=== PATIENT | female | born 1970 | race Hispanic/Latino ===

== ENCOUNTER 2018-03-06 19:27 | Emergency (ER) | payer MEDICAID, OTHER ==
[~2018-03-06] VITALS: Ht 154.9 cm; Wt 86.2 kg
[2018-03-06] MEDS ORDERED: TETRACAINE HCL 0.5% 4 ML OPHTH SOLN ONE (19:52)
[2018-03-06] MEDS ORDERED: FLUORESCEIN SODIUM 0.6 MG STRIP ONE (19:52)
[2018-03-06] MEDS ORDERED: TIMOLOL MALEATE 0.5% 5 ML BOTTLE ONE (21:14)
[2018-03-06] MEDS ORDERED: DORZOLAMIDE HCL 2% 10ML DROPS ONE (22:32)
[2018-03-06] MEDS ORDERED: HYDROCODONE/ACETAMINOPHEN 10/325 MG TAB ONE (22:35)
[2018-03-06] MEDS ORDERED: LATANOPROST 2.5 ML DROPS OP ONE (23:45)
[2018-03-07] MEDS ORDERED: TRAMADOL HCL 50 MG TABLET ONE (00:35)
== END 2018-03-07 00:40 | disposition home or self-care (01) ==
LOC: EDH 19:27
DX: E11.65 Type 2 diabetes mellitus with hyperglycemia (principal); H40.9 Unspecified glaucoma; Z87.891 Personal history of nicotine dependence
CPT/HCPCS: 82948

== ENCOUNTER 2021-01-06 17:27 | Emergency (ER) | payer OTHER, SELFPAY ==
[2021-01-06] MEDS ORDERED: NIFEDIPINE 10 MG CAP ONE (17:49)
[2021-01-06] MEDS ORDERED: ACETAMINOPHEN 325 MG TAB ONE (18:08)
[2021-01-06 18:22] LABS: EOSINOPHILS % (AUTO) 1.1 % (0.0-8.0); HEMATOCRIT 33.4 % (36-48); LYMPHOCYTES % (AUTO) 23.2 % (21.0-51.0); MEAN CORPUSCULAR HGB CONC 33.2 g/dL (32.0-36.0); MEAN CORPUSCULAR VOLUME 87.2 fL (79-99); MONOCYTES % (AUTO) 5.1 % (3.0-13.0); NEUTROPHILS % (AUTO) 69.2 % (40.0-77.0); PLATELET COUNT (AUTO) 305 K/uL (130-400); RED BLOOD CELL COUNT(AUTO) 3.83 MIL/uL (4.00-5.50); WHITE BLOOD COUNT (AUTO) 8.2 K/uL (4.8-10.8)
[2021-01-06 18:31] LABS: POTASSIUM 4.5 mmol/L (3.5-5.1)
[2021-01-06] MEDS ORDERED: DiphenhydrAMINE HCL 50 MG/ML VIAL ONE (20:46)
[2021-01-06] MEDS ORDERED: OXYCODONE/ACETAMIN 5/325MG TAB ONE (20:47)
[2021-01-06 20:48] LABS: APPEARANCE,URINE Clear (CLEAR); BILIRUBIN,URINE Negative (NEGATIVE); COLOR,URINE Yellow (YELLOW); GLUCOSE, URINE (UA) Negative (NEGATIVE); KETONES,URINE Negative (NEGATIVE); LEUKOCYTE ESTERASE ,URINE Small (NEGATIVE); NITRATE,URINE Negative (NEGATIVE); OCCULT BLOOD,URINE Negative (NEGATIVE); PROTEIN,URINE POS 1+ mg/dL (NEGATIVE); UROBILINOGEN,URINE 0.2 mg/dL (0.2-1.0)
[2021-01-06 20:54] LABS: BACTERIA,URINE Rare /HPF (None Seen); RBC,URINE 0-1 /HPF (0-1); SQUAMOUS EPITHELIAL CELL,UR Moderate /HPF (0-2)
== END 2021-01-06 21:21 | disposition home or self-care (01) ==
LOC: EDH 17:27
DX: R51.9 Headache, unspecified (principal); I10 Essential (primary) hypertension; E11.9 Type 2 diabetes mellitus without complications; E78.5 Hyperlipidemia, unspecified
CPT/HCPCS: 36415; 70450; 80048; 81001; 82550; 84484; 85025; 93005; 99285; J1200

== ENCOUNTER 2024-08-03 07:29 | Emergency (ER) | payer BC, OTHER ==
[~2024-08-03] VITALS: Ht 152.4 cm; Wt 84.8 kg
--- NOTE | 2024-08-03 07:42 | NUR ---
UNABLE TO OBTAIN BP IN TRIAGE ROOM AFTER 3 ATTEMPTS, PT IN ROOM 19 CURRENTLY TRYING TO RECORD BP, PT STATES SHE HAS NOT TAKEN BP MEDS TODAY
--- NOTE | 2024-08-03 08:36 | ERN ---
General Chief Complaint: Dizzy/Light Headed Stated Complaint: DIZZINESS Time Seen by MD: 07:52 History of Present Illness Initial Comments 54-year-old female who presents for vertigo type symptoms beginning at 4:00 a.m. on 08/03/2024. She reports that she was sleeping, she woke up she felt spinning sensation. She thought that her sugar was low, she checked it and it was 110. She drank some juice. She laid back down but the spinning persists. She reports that it is worse when she moves her head from side to side or stands up. If she sits still with the eyes closed the symptoms improve. She denies any recent congestion or fevers. She denies any focal neurologic deficits otherwise. Allergies: Coded Allergies: No Known Allergies (Verified Allergy, Unknown, 03/07/18) Past Medical History Past Medical History: Diabetes-Type II, High Cholesterol, Hypertension Past Surgical History: None ROS Dictation CONSTITUTIONAL: No chills, no fever, no weakness, no diaphoresis, no malaise. HEAD/FACE: No signs of trauma. EENT: No eye pain, no blurred vision, no tearing, no double vision, no ear pain, no ear discharge, no nose pain, no nasal congestion, no throat pain, no throat swelling, no mouth pain. RESPIRATORY: No cough, no orthopnea, no SOB, no stridor, no wheezing. CARDIOVASCULAR: No chest pain, no edema, no palpitations, no syncope. GASTROINTESTINAL/ABDOMINAL: No abdominal pain, no constipation, no diarrhea, no nausea, no vomiting. GENITOURINARY: No abnormal discharge, no dysuria, no frequent urination, no hematuria. No complaints of pain in the genitals. MUSCULOSKELETAL: No back pain, no gout, no joint pain, no joint swelling, no muscle pain, no muscle stiffness, no neck pain. INTEGUMENTARY: No change in color, no change in hair/nails, no dryness, no lesion, no lumps, no rash. NEUROLOGICAL/PSYCH: DIZZINESS/VERTIGO HEMATOLOGIC/LYMPHATIC: Not anemic, no history of blood clots, no apparent bleeding, no bruising, glands not swollen. All Systems Negative, Except as Noted. Physical Exam Physical Exam Dictation CONSTITUTIONAL: No chills, no fever, no weakness, no diaphoresis, no malaise. HEAD/FACE: No signs of trauma. EENT: No eye pain, no blurred vision, no tearing, no double vision, no ear pain, no ear discharge, no nose pain, no nasal congestion, no throat pain, no throat swelling, no mouth pain. RESPIRATORY: No cough, no orthopnea, no SOB, no stridor, no wheezing. CARDIOVASCULAR: No chest pain, no edema, no palpitations, no syncope. GASTROINTESTINAL/ABDOMINAL: No abdominal pain, no constipation, no diarrhea, no nausea, no vomiting. GENITOURINARY: No abnormal discharge, no dysuria, no frequent urination, no hematuria. No complaints of pain in the genitals. MUSCULOSKELETAL: No back pain, no gout, no joint pain, no joint swelling, no muscle pain, no muscle stiffness, no neck pain. INTEGUMENTARY: No change in color, no change in hair/nails, no dryness, no lesion, no lumps, no rash. NEUROLOGICAL/PSYCH: No anxiety, not depressed, no emotional problem, no headache, no numbness, no pre-existing deficit, no history of seizures, no tremors, no weakness. HEMATOLOGIC/LYMPHATIC: Not anemic, no history of blood clots, no apparent bleeding, no bruising, glands not swollen. All Systems Negative, Except as Noted. Results Laboratory and Microbiology Lab and Micro Result Laboratory Tests Test 08/03/24 08:18 White Blood Count 13.2 K/uL (4.8-10.8) H Red Blood Count 4.34 MIL/uL (4.00-5.50) Hemoglobin 12.9 g/dL (12.0-16.0) Hematocrit 37.3 % (36-48) Mean Corpuscular Volume 85.9 fL (79-99) Mean Corpuscular Hemoglobin 29.7 pg (27.0-33.0) Mean Corpuscular Hemoglobin Concent 34.6 g/dL (32.0-36.0) Red Cell Distribution Width 12.3 % (11.0-15.5) Platelet Count 298 K/uL (130-400) Mean Platelet Volume 9.4 fL (7.5-10.5) Immature Granulocyte % (Auto) 0.3 % (0-1) Neutrophils (%) (Auto) 84.8 % (40.0-77.0) H Lymphocytes (%) (Auto) 11.1 % (21.0-51.0) L Monocytes (%) (Auto) 2.5 % (3.0-13.0) L Eosinophils (%) (Auto) 0.5 % (0.0-8.0) Basophils (%) (Auto) 0.8 % (0.0-5.0) Neutrophils # (Auto) 11.2 K/uL (1.8-7.7) H Lymphocytes # (Auto) 1.5 K/uL (1.0-4.8) Monocytes # (Auto) 0.3 K/uL (0.1-1.0) Eosinophils # (Auto) 0.06 K/uL (0.00-0.70) Basophils # (Auto) 0.10 K/uL (0.00-0.20) Absolute Immature Granulocyte (auto 0.04 K/uL (0-1) Nucleated Red Blood Cells 0.0 % (0.0-0.19) Urine Color COLORLESS (YELLOW) Urine Appearance CLEAR (CLEAR) Urine pH 7.0 (5.0-8.0) Urine Specific [place] 1.017 (1.001-1.031) Urine Protein 70 mg/dL (NEGATIVE) H Urine Glucose (UA) >=1000 mg/dL (NEGATIVE) H Urine Ketones 10 mg/dL (NEGATIVE) H Urine Occult Blood NEGATIVE (NEGATIVE) Urine Nitrate NEGATIVE (NEGATIVE) Urine Bilirubin NEGATIVE mg/dL (NEGATIVE) Urine Urobilinogen 0.2 mg/dL (0.2-1.0) Urine Leukocyte Esterase NEGATIVE Aparna/uL Urine RBC 0-1 /HPF (0-1) Urine WBC 0-1 /HPF (0-1) Urine Squamous Epithelial Cells RARE /HPF (0-2) Urine Bacteria None /HPF (None Seen) Sodium Level 134 mmol/L (136-145) L Potassium Level 4.2 mmol/L (3.5-5.1) Chloride Level 98 mmol/L (101-111) L Carbon Dioxide Level 30 mmol/L (21-32) Blood Urea Nitrogen 34 mg/dL (7-18) H Creatinine 1.3 mg/dL (0.5-1.0) H Glomerular Filtration Rate Calc 48 mL/min (>90) Random Glucose 254 mg/dL (70-105) H Total Calcium 9.7 mg/dL (8.5-10.1) Total Bilirubin 0.5 mg/dL (0.2-1.0) Direct Bilirubin 0.1 mg/dL (0.0-0.3) Aspartate Amino Transf (AST/SGOT) 13 U/L (10-37) Alanine Aminotransferase (ALT/SGPT) 26 U/L (12-78) Alkaline Phosphatase 85 U/L (50-136) Total Creatine Kinase 80 U/L (21-232) # Troponin I High Sensitivity 7 ng/L (4-50) Total Protein 7.5 g/dL (6.0-8.3) Albumin 3.8 g/dL (3.5-5.0) Lipase 100 U/L (16-77) H MDM CC: Vertigo type symptoms Historian: Patient Comorbidities: Hypertension, diabetes, dyslipidemia Differential diagnosis: Central stroke, benign peripheral vertigo, ear infection, other. On clinical exam she has normal cranial nerves, no nystagmus, no vertical nystagmus, able to move left to right without any head tilt or abnormalities. GCS 15. NIHSS of 0. Vital signs show mild hypertension, this improved in the ER. She took her home blood pressure medications as regularly scheduled here. Labs: Mild leukocytosis 13.2 k with a left shift. No bands. Chemistry shows mild dehydration creatinine 1.3 BP 134. Glucose 254. Troponin stable. Lipase stable. Liver enzymes stable. Urinalysis shows glucose otherwise unremarkable. CT head (independently interpreted by me): No brain bleeds or major abnormalities. Treatment in ER: Reglan IV, IV normal saline. EKG: NSR, rate of 85, normal axis, good R-wave progression, intervals are stable. No STEMI. Independently interpreted by me. Patient was road tested after 2 hours in the ER. Treatments have completely resolved. No vertigo or dizziness. She was able to ambulate throughout the ER without any nausea or vomiting dizziness over the spins. Very low suspicion for any central cause at this time. No signs of cardiac disease. I suspect BPPV. We will discharge with Antivert and recommend PCP follow up. REASON: dizziness ORDERING PHYSICIAN: DARLENE BRAGA DO PROCEDURE: HEAD WO - CT HEAD/BRAIN W/O CONTRAST CT HEAD WITHOUT CONTRAST INDICATION: Dizziness TECHNIQUE: Noncontrast axial helical CT images from the vertex through the skull base using 5 mm slice thickness without contrast material. CT was performed with one or more of the following dose reduction techniques: Automated exposure control, adjustment of the mA and/or kV according to patient size, or use of iterative reconstruction technique. COMPARISON: None FINDINGS: The cerebral and cerebellar hemispheres are age-appropriate in appearance. No evidence for abnormal extra-axial fluid collections or masses. The ventricles and sulci are normal in size and configuration. No evidence for intracranial parenchymal, epidural, or subdural hemorrhage, mass effect or midline shift. The neri-white matter differentiation is well preserved. No secondary evidence to suggest acute ischemia. The brainstem and cerebellum appear normal. The visualized orbits appear unremarkable. The visible paranasal sinuses and mastoid air cells are clear. The calvarium appears normal. IMPRESSION: No acute intracranial process identified. ED Course Orders Procedure Category Date Status Time Cbc With Differential LAB 08/03/24 Complete 07:53 Troponin I High LAB 08/03/24 Complete Sensitivity 07:53 Urinalysis Profile LAB 08/03/24 Complete 07:53 12 Lead Ekg Tracing- EKG 08/03/24 Complete Technical 07:53 0.9%Nacl 1000ml (Ns PHA 08/03/24 Complete 1000ml) 08:00 Creatine Kinase, Total LAB 08/03/24 Complete 07:53 Lipase LAB 08/03/24 Complete 07:53 Basic Metabolic Panel LAB 08/03/24 Complete 07:53 Metoclopramide 10 PHA 08/03/24 Complete Mg/2 Ml Vial (Reglan 1 08:00 Bedside Glucose CPOE 08/03/24 Transmitted Fingerstick 08:04 Ct Head/Brain W/O CT 08/03/24 Resulted Contrast 08:11 Hepatic Function Panel LAB 08/03/24 Complete 07:53 Current Medications Medications (Trade) Dose Ordered Sig/Hero Route PRN Reason Start Time Stop Time Status Last Admin Dose Admin Metoclopramide HCl (regLAN 10MG IV) 10 mg ONCE ONCE IVP 08/03/24 08:00 08/03/24 08:01 DC 08/03/24 09:01 Sodium Chloride 1,000 ml @ 0 mls/hr ONCE ONCE IV 08/03/24 08:00 08/03/24 08:01 DC 08/03/24 09:01 Vital Signs Date Time Temp Pulse Resp B/P (MAP) Pulse Ox O2 Delivery O2 Flow Rate FiO2 08/03/24 08:00 98.1 80 16 187/62 98 Room Air* 0 21 08/03/24 07:33 98.1 84 18 98 DX & DISP Disposition: Discharge Departure Impression: Primary Impression: Vertigo Additional Impressions: Hypertension, Hyperglycemia, Dehydration Condition: Stable Scripts Meclizine HCl (Antivert) 25 Mg Tab.chew 25 MG PO QID for dizziness, #20 TAB.CHEW Prov: DARLENE BRAGA DO 08/03/24 Additional Instructions: You likely have vertigo, which is the sensation of spinning or dizziness often caused by an inner ear problem. Your blood pressure was mildly elevated in the ER. Please continue with your home blood pressure medications. Your lab work (CBC, metabolic panel, liver enzymes, lipase, troponin, urinalysis) shows mildly elevated blood glucose and signs of dehydration. Otherwise her labs are unremarkable. The CT scan of your brain is unremarkable. Your EKG is normal. You received IV fluids and Reglan here in the ER. I have prescribed meclizine to use as needed for dizziness. You can take 25 mg every 6 hours as needed. Over the next few days, be sure to stay hydrated. Drink plenty of liquids as dehydration can worsen dizziness. Avoid sudden movements are quick changes in position which can often worsen dizziness. If you do have a dizzy spell, rest and a quiet dark room. Drink a glass of water and take one of the medications that I have prescribed. There are head positioning exercises that may help with your symptoms. You can Google the Kezia maneuver to see if this helps your symptoms. This is a positioning maneuver that you can do at home. Please return to the emergency department if you have a sudden or severe headache, double vision, slurred speech, difficulty walking, weakness, persistent vomiting, or any other concerning symptom. If your symptoms continue by next week I recommend he follow up with her primary doctor. You may need further treatment or evaluation or to see a specialist. Referrals: [facility] STRANGE (PCP) DARLENE BRAGA DO Aug 03, 2024 08:35
--- NOTE | 2024-08-03 08:42 | EKG ---
[facility] Test Date: 2024-08-03 Test Time: 08:36:32 Pat Name: CARMEN HALLMAN Department: [facility] Room: Gender: F Neurosurgical Physician Assistant: [id number] : 1970 Requested By: DARLENE BRAGA Order Number: [id number] Reading MD: Darwin Lugo Measurements Intervals [place] Rate: 85 P: 41 HI: 181 QRS: 23 QRSD: 94 T: 35 QT: 366 QTc: 436 Interpretive Statements Sinus rhythm Compared to ECG 01/06/2021 19:39:23 No significant changes Electronically Signed On 08-03-2024 20:50:24 BALANCE STAFF INSPECTOR by Darwin Lugo Please click the below link to view image of tracing.
[2024-08-03 08:44] LABS: APPEARANCE,URINE CLEAR (CLEAR); BILIRUBIN,URINE NEGATIVE (NEGATIVE); COLOR,URINE COLORLESS (YELLOW); GLUCOSE, URINE (UA) >=1000 mg/dL (NEGATIVE); KETONES,URINE 10 mg/dL (NEGATIVE); LEUKOCYTE ESTERASE ,URINE NEGATIVE Leu/uL (NEGATIVE); NITRATE,URINE NEGATIVE (NEGATIVE); OCCULT BLOOD,URINE NEGATIVE (NEGATIVE); PROTEIN,URINE 70 mg/dL (NEGATIVE); UROBILINOGEN,URINE 0.2 mg/dL (0.2-1.0)
[2024-08-03 08:50] LABS: ADD UA MICROSCOPIC YES
[2024-08-03 08:57] LABS: BASOPHILS % (AUTO) 0.8 % (0.0-5.0); EOSINOPHILS # (AUTO) 0.06 K/uL (0.00-0.70); EOSINOPHILS % (AUTO) 0.5 % (0.0-8.0); HEMATOCRIT 37.3 % (36-48); IMMATURE GRANULOCYTE ABSOLUTE 0.04 K/uL (0-1); LYMPHOCYTES # (AUTO) 1.5 K/uL (1.0-4.8); LYMPHOCYTES % (AUTO) 11.1 % (21.0-51.0); MEAN CORPUSCULAR HEMOGLOBIN 29.7 pg (27.0-33.0); MEAN CORPUSCULAR HGB CONC 34.6 g/dL (32.0-36.0); MEAN CORPUSCULAR VOLUME 85.9 fL (79-99); MONOCYTES # (AUTO) 0.3 K/uL (0.1-1.0); MONOCYTES % (AUTO) 2.5 % (3.0-13.0); NEUTROPHILS # (AUTO) 11.2 K/uL (1.8-7.7); NEUTROPHILS % (AUTO) 84.8 % (40.0-77.0); PLATELET COUNT (AUTO) 298 K/uL (130-400); RED BLOOD CELL COUNT(AUTO) 4.34 MIL/uL (4.00-5.50); RED CELL DISTRIBUTION WIDTH 12.3 % (11.0-15.5); WHITE BLOOD COUNT (AUTO) 13.2 K/uL (4.8-10.8)
[2024-08-03] MEDS: metoCLOPRAmide 10 MG/2 ML VIAL IVP ONE (09:01)
[2024-08-03] MEDS: 0.9%NACL 1000ML 1,000 ML IV ONE (09:01)
[2024-08-03 09:02] LABS: RBC,URINE 0-1 /HPF (0-1); SQUAMOUS EPITHELIAL CELL,UR RARE /HPF (0-2); WBC,URINE 0-1 /HPF (0-1)
[2024-08-03 09:04] LABS: CREATININE 1.3 mg/dL (0.5-1.0); POTASSIUM 4.2 mmol/L (3.5-5.1)
--- NOTE | 2024-08-03 09:04 | HMCIMG ---
CT HEAD WITHOUT CONTRAST INDICATION: Dizziness TECHNIQUE: Noncontrast axial helical CT images from the vertex through the skull base using 5 mm slice thickness without contrast material. CT was performed with one or more of the following dose reduction techniques: Automated exposure control, adjustment of the mA and/or kV according to patient size, or use of iterative reconstruction technique. COMPARISON: None FINDINGS: The cerebral and cerebellar hemispheres are age-appropriate in appearance. No evidence for abnormal extra-axial fluid collections or masses. The ventricles and sulci are normal in size and configuration. No evidence for intracranial parenchymal, epidural, or subdural hemorrhage, mass effect or midline shift. The neri-white matter differentiation is well preserved. No secondary evidence to suggest acute ischemia. The brainstem and cerebellum appear normal. The visualized orbits appear unremarkable. The visible paranasal sinuses and mastoid air cells are clear. The calvarium appears normal. IMPRESSION: No acute intracranial process identified.
[2024-08-03 09:08] LABS: ALBUMIN 3.8 g/dL (3.5-5.0); BILIRUBIN,DIRECT 0.1 mg/dL (0.0-0.3); BILIRUBIN,TOTAL 0.5 mg/dL (0.2-1.0); TOTAL PROTEIN, SERUM 7.5 g/dL (6.0-8.3)
[2024-08-03] MEDS ORDERED: MECL-262 PO (09:51)
--- NOTE | 2024-08-03 09:53 | NUR ---
PT AMBULATING WITHOUT ASSISTANCE. AMBULATED PT TO THE END OF THE SALVADOR, BEAR NOTED. SHE STATES SHE FEELS LESS DIZZY.
[2024-08-03 10:15] VITALS: BP 163/69; PULSE 78; RESP 16; TEMP 97.7; O2SAT 98
== END 2024-08-03 10:25 | disposition home or self-care (01) ==
LOC: EDH 07:29
DX: R42 Dizziness and giddiness (principal); E11.65 Type 2 diabetes mellitus with hyperglycemia; E78.00 Pure hypercholesterolemia, unspecified; I10 Essential (primary) hypertension; E86.0 Dehydration
CPT/HCPCS: 99284; 96374; 70450; 96361; 82550; 80076; 84484; 80048; 83690; 85025; 81001; 36415; 93005; J7030; J2765

== ENCOUNTER 2024-12-22 16:56 | Emergency (ER) | payer BC ==
[~2024-12-22] VITALS: Ht 152.4 cm; Wt 80.7 kg
[~2024-12-22 16:56] MED LIST: MECL-262 PO
--- NOTE | 2024-12-22 17:08 | EKG ---
[facility] Test Date: 2024-12-22 Test Time: 17:06:26 Pat Name: CARMEN HALLMAN Department: [facility] Room: Gender: F Legal Billing Clerk: [id number] : 1970 Requested By: AYAN FELIX Order Number: [id number] Reading MD: Aletha Wei Measurements Intervals [place] Rate: 84 P: 56 MT: 172 QRS: 32 QRSD: 85 T: 56 QT: 348 QTc: 411 Interpretive Statements Sinus rhythm Low voltage, precordial leads Compared to ECG 08/03/2024 08:36:32 Low QRS voltage now present Electronically Signed On 12-23-2024 17:03:45 CDT by Aletha Wei Please click the below link to view image of tracing.
--- NOTE | 2024-12-22 17:10 | ERN ---
General Chief Complaint: Hypotension Stated Complaint: LOW BLOOD PRESSURE Time Seen by MD: 16:57 Source: patient History of Present Illness Initial Comments PATIENT IS A 54-YEAR-OLD FEMALE COMING IN TO BE EVALUATED FOR NAUSEOUSNESS AND LOW BLOOD PRESSURE. PER PATIENT THESE SYMPTOMS BEGAN YESTERDAY AND HAS BEEN GETTING WORSE SHE STATES THAT SHE FELT VERY WEAK AND ALMOST PASSED OUT SECONDARY TO SHE BELIEVES WAS LOW BLOOD PRESSURE. Allergies: Coded Allergies: No Known Allergies (Verified Allergy, Unknown, 03/07/18) Home Meds Active Scripts Meclizine HCl (Antivert) 25 Mg Tab.chew, 25 MG PO QID for dizziness, #20 TAB.CHEW Prov:DARLENE BRAGA DO 08/03/24 Past Medical History Past Medical History: Diabetes-Type II, High Cholesterol, Hypertension Past Surgical History: None ROS Dictation CONSTITUTIONAL: NO CHILLS, NO FEVER, WEAKNESS, NO DIAPHORESIS, NO MALAISE. HEAD/FACE: NO SIGNS OF TRAUMA. EENT: NO EYE PAIN, NO BLURRED VISION, NO TEARING, NO DOUBLE VISION, NO EAR PAIN, NO EAR DISCHARGE, NO NOSE PAIN, NO NASAL CONGESTION, NO THROAT PAIN, NO THROAT SWELLING, NO MOUTH PAIN. RESPIRATORY: NO COUGH, NO ORTHOPNEA, NO SOB, NO STRIDOR, NO WHEEZING. CARDIOVASCULAR: NO CHEST PAIN, NO EDEMA, NO PALPITATIONS, NO SYNCOPE. GASTROINTESTINAL/ABDOMINAL: NO ABDOMINAL PAIN, NO CONSTIPATION, NO DIARRHEA, NO NAUSEA, NO VOMITING. GENITOURINARY: NO ABNORMAL DISCHARGE, NO DYSURIA, NO FREQUENT URINATION, NO HEMATURIA. NO COMPLAINTS OF PAIN IN THE GENITALS. MUSCULOSKELETAL: NO BACK PAIN, NO GOUT, NO JOINT PAIN, NO JOINT SWELLING, NO MUSCLE PAIN, NO MUSCLE STIFFNESS, NO NECK PAIN. INTEGUMENTARY: NO CHANGE IN COLOR, NO CHANGE IN HAIR/NAILS, NO DRYNESS, NO LESION, NO LUMPS, NO RASH. NEUROLOGICAL/PSYCH: NO ANXIETY, NOT DEPRESSED, NO EMOTIONAL PROBLEM, NO HEADACHE, NO NUMBNESS, NO PRE-EXISTING DEFICIT, NO HISTORY OF SEIZURES, NO TREMORS, NO WEAKNESS. HEMATOLOGIC/LYMPHATIC: NOT ANEMIC, NO HISTORY OF BLOOD CLOTS, NO APPARENT BLEEDING, NO BRUISING, GLANDS NOT SWOLLEN. ALL SYSTEMS NEGATIVE, EXCEPT NOTED. Physical Exam Physical Exam Dictation VITAL SIGNS: REVIEWED. GENERAL APPEARANCE: ALERT, ORIENTED X3, NO ACUTE DISTRESS, OBESE. HEAD AND FACE: NON-TRAUMATIC. EYES: PERRL, PINK CONJUNCTIVAS, EYELID NO TRAUMA, ANTERIOR CHAMBER CLEAR. EARS: PINNAS INTACT AND NO SIGNS OF TRAUMA OR ERYTHEMA. EAR CANALS CLEAR AND NO DISCHARGE. TMS NO ERYTHEMA. NOSE: NO DISCHARGE, NO BLEEDING. OROPHARYNX: MOUTH NORMAL, TEETH NO CARIES, TONGUE PINK. PHARYNX CLEAR, NO ERYTHEMA. TONSILS NO EXUDATES, NO ABSCESSES NOTED. MUCOUS MEMBRANE MOIST. NECK: SUPPLE, NON-TENDER, NO THYROMEGALY, NO MASSES, NO JVD, NO BRUITS. BREAST: DEFERRED. CHEST: NO TENDERNESS, NO CREPITUS, NO PARADOXICAL MOVEMENT, NO RETRACTIONS. LUNGS: CLEAR, WELL-VENTILATED, SYMMETRIC, NO RALES, NO WHEEZING, NO RHONCHI, NO STRIDOR, GOOD BREATH SOUNDS BILATERALLY. HEART: REGULAR RATE, REGULAR RHYTHM, NO MURMUR, NO GALLOPS. VASCULAR: NO PERIPHERAL EDEMA. ABDOMEN: SOFT, POSITIVE BOWEL SOUNDS, NONDISTENDED, NO GUARDING, NONTENDER, NO REBOUND, NO MASSES NO HEPATOMEGALY, NO SPLENOMEGALY, NO JACK'S SIGN, NO HERNIAS. RECTAL: DEFERRED. GENITAL: DEFERRED. NEUROLOGICAL: NORMAL SPEECH, GROSS MOTOR FUNCTION INTACT, GROSS SENSORY FUNCTION INTACT. MUSCULOSKELETAL: NECK NONTENDER, FULL RANGE OF MOTION, BACK NONTENDER, FULL RANGE OF MOTION. EXTREMITIES: NONTENDER, FULL RANGE OF MOTION. SKIN: COLOR PINK, DRY, NO TURGOR, NO RASH, NO LACERATIONS, NO ABRASIONS, NO CONTUSIONS. LYMPHATICS: DEFERRED. Results Laboratory and Microbiology Lab and Micro Result Laboratory Tests Test 12/22/24 17:13 White Blood Count 10.5 K/uL (4.8-10.8) Red Blood Count 3.95 MIL/uL (4.00-5.50) L Hemoglobin 11.7 g/dL (12.0-16.0) L Hematocrit 35.0 % (36-48) L Mean Corpuscular Volume 88.6 fL (79-99) Mean Corpuscular Hemoglobin 29.6 pg (27.0-33.0) Mean Corpuscular Hemoglobin Concent 33.4 g/dL (32.0-36.0) Red Cell Distribution Width 12.3 % (11.0-15.5) Platelet Count 305 K/uL (130-400) Mean Platelet Volume 9.5 fL (7.5-10.5) Immature Granulocyte % (Auto) 0.5 % (0-1) Neutrophils (%) (Auto) 71.2 % (40.0-77.0) Lymphocytes (%) (Auto) 22.0 % (21.0-51.0) Monocytes (%) (Auto) 4.7 % (3.0-13.0) Eosinophils (%) (Auto) 1.0 % (0.0-8.0) Basophils (%) (Auto) 0.6 % (0.0-5.0) Neutrophils # (Auto) 7.5 K/uL (1.8-7.7) Lymphocytes # (Auto) 2.3 K/uL (1.0-4.8) Monocytes # (Auto) 0.5 K/uL (0.1-1.0) Eosinophils # (Auto) 0.10 K/uL (0.00-0.70) Basophils # (Auto) 0.06 K/uL (0.00-0.20) Absolute Immature Granulocyte (auto 0.05 K/uL (0-1) Nucleated Red Blood Cells 0.0 % (0.0-0.19) Prothrombin Time 10.3 SEC (9.6-11.6) Prothromb Time International Ratio 0.97 (0.85-1.15) Activated Partial Thromboplast Time 24.5 SEC (26.3-35.5) L Sodium Level 135 mmol/L (136-145) L Potassium Level 4.7 mmol/L (3.5-5.1) Chloride Level 99 mmol/L (101-111) L Carbon Dioxide Level 29 mmol/L (21-32) Blood Urea Nitrogen 40 mg/dL (7-18) H Creatinine 1.7 mg/dL (0.5-1.0) H Glomerular Filtration Rate Calc 35 mL/min (>90) Random Glucose 315 mg/dL (70-105) H Total Calcium 8.9 mg/dL (8.5-10.1) Magnesium Level 1.50 mg/dL (1.80-2.40) L Total Creatine Kinase 70 U/L (21-232) Troponin I High Sensitivity 6 ng/L (4-50) B-Type Natriuretic Peptide 63 pg/mL (0-100) Labs Reviewed?: Yes EKG/XRAY/US/CT/MRI EKG Comment 12/22/2024 TIME 5:06 P.M. VENTRICULAR RATE 84 SINUS RHYTHM PA [address] WAVE ELEVATION OR DEPRESSION MDM MDM: DIFFERENTIAL DIAGNOSIS: DEHYDRATION, HYPERGLYCEMIA, RATIONALE: TESTS CONSIDERED AND ORDERED SECONDARY TO SHARED DECISION MAKING INCLUDE: PREVIOUS OUTSIDE RECORDS REVIEWED: OLD ER VISITS. PATIENT IS A 58-YEAR-OLD FEMALE COMING IN TO BE EVALUATED FOR LOW BLOOD PRESSURE. PATIENT STATES THAT SHE CHECKED HER BLOOD PRESSURE AT HOME AND SAW THAT IT WAS LOW SHE WENT TO [facility] CHECKED HIS IN HIS THE ONE OCCASION BUT THEN NORMALIZED. SHE STATES THAT SHE CAME IN FOR FURTHER EVALUATION. LABORATORY WORKUP ELEVATED BLOOD GLUCOSE WITH DEHYDRATION DUE TO ELEVATED CREATININE. PATIENT HAS HAD ELEVATED CREATININE IN THE PAST TODAY IT WENT UP 0.4 POINTS. I DID ADVISED HER APPROPRIATE FOLLOW UP WITH PCP IN BETTER GLUCOSE CONTROL. THROUGHOUT ER VISIT PATIENT HAS BEEN STABLE. ED Course Orders Procedure Category Date Status Time Cbc With Differential LAB 12/22/24 Complete 17:01 Prothrombin Time With LAB 12/22/24 Complete INR 17:01 B-Type Natriuretic LAB 12/22/24 Complete Peptide 17:01 Chest 1vw RAD 12/22/24 Resulted 17:01 12 Lead Ekg Tracing- EKG 12/22/24 Complete Technical 17:01 Lactated Ringers PHA 12/22/24 In Process 1000ml (Lactated 17:30 Magnesium LAB 12/22/24 Complete 17:01 Creatine Kinase, Total LAB 12/22/24 Complete 17:01 Troponin I High LAB 12/22/24 Complete Sensitivity 17:01 Urinalysis Profile LAB 12/22/24 Logged 17:01 Partial LAB 12/22/24 Complete Thromboplastin Time 17:01 Basic Metabolic Panel LAB 12/22/24 Complete 17:01 Current Medications Medications (Trade) Dose Ordered Sig/Hero Route PRN Reason Start Time Stop Time Status Last Admin Dose Admin Lactated Ringer's 1,000 ml @ 0 mls/hr ONCE IV 12/22/24 17:30 12/22/24 21:30 12/22/24 18:53 Vital Signs Date Time Temp Pulse Resp B/P (MAP) Pulse Ox O2 Delivery O2 Flow Rate FiO2 12/22/24 17:01 97.9 86 20 155/84 99 0 DX & DISP Disposition: Discharge Departure Impression: Primary Impression: Dehydration Additional Impression: Hyperglycemia Condition: Stable Additional Instructions: FOLLOW-UP WITH PRIMARY CARE PROVIDER IN 1 TO 2 DAYS. TAKE MEDICATIONS DIRECTED HERE IN THE EMERGENCY ROOM. OKAY TO CONTINUE HOME MEDICATIONS UNLESS OTHERWISE DISCUSSED DURING YOUR VISIT IN THE EMERGENCY ROOM TODAY. RETURN TO YOUR NEAREST EMERGENCY ROOM IF SYMPTOMS WORSEN OR IF THERE IS NO IMPROVEMENT. CALL 911 IF YOU NEED IMMEDIATE ASSISTANCE. TAKE TYLENOL [id number] NEEDED AND IF NO CONTRAINDICATIONS ARE PRESENT. INCREASE ORAL HYDRATION. A WOUND CULTURE OR URINE CULTURE WAS ORDERED HERE IN THE EMERGENCY ROOM DEPARTMENT PLEASE FOLLOW-UP WITH PRIMARY CARE PROVIDER AND ADVISE THEM TO GET REPEAT PORTS FROM OUR FACILITY. IF YOU HAD ANY AREILLE WRAP/SPLINTS THAT WERE APPLIED HERE, PLEASE DO NOT REMOVE THEM UNTIL YOU SEE YOUR PRIMARY CARE OR SPECIALTY. REFERRALS: Referrals: [facility] (PCP) Time of Disposition: 18:59 AYAN FELIX MD Dec 22, 2024 17:10
[2024-12-22 17:21] LABS: BASOPHILS # (AUTO) 0.06 K/uL (0.00-0.20); BASOPHILS % (AUTO) 0.6 % (0.0-5.0); IMMATURE GRANULOCYTE ABSOLUTE 0.05 K/uL (0-1); LYMPHOCYTES # (AUTO) 2.3 K/uL (1.0-4.8); MEAN CORPUSCULAR HEMOGLOBIN 29.6 pg (27.0-33.0); MEAN CORPUSCULAR HGB CONC 33.4 g/dL (32.0-36.0); MEAN CORPUSCULAR VOLUME 88.6 fL (79-99); MONOCYTES # (AUTO) 0.5 K/uL (0.1-1.0); MONOCYTES % (AUTO) 4.7 % (3.0-13.0); NEUTROPHILS # (AUTO) 7.5 K/uL (1.8-7.7); NEUTROPHILS % (AUTO) 71.2 % (40.0-77.0); PLATELET COUNT (AUTO) 305 K/uL (130-400); RED BLOOD CELL COUNT(AUTO) 3.95 MIL/uL (4.00-5.50); RED CELL DISTRIBUTION WIDTH 12.3 % (11.0-15.5); WHITE BLOOD COUNT (AUTO) 10.5 K/uL (4.8-10.8)
[2024-12-22 17:29] LABS: CREATININE 1.7 mg/dL (0.5-1.0); POTASSIUM 4.7 mmol/L (3.5-5.1)
[2024-12-22 17:31] LABS: INR 0.97 (0.85-1.15); PROTHROMBIN TIME 10.3 SEC (9.6-11.6)
[2024-12-22 17:32] LABS: PARTIAL THROMBOPLASTIN TIME 24.5 SEC (26.3-35.5)
[2024-12-22 17:38] LABS: MAGNESIUM 1.5 mg/dL (1.80-2.40)
[2024-12-22 17:41] LABS: B-TYPE NATRIURETIC PEPTIDE 63 pg/mL (0-100)
--- NOTE | 2024-12-22 18:06 | HMCIMG ---
PORTABLE CHEST RADIOGRAPH INDICATION: cp COMPARISON: None FINDINGS: Heart size is normal. The pulmonary vascularity and joel appear normal. No abnormal pulmonary parenchymal opacity or consolidation identified. No significant pleural effusion noted. No pneumothorax detected. IMPRESSION: No radiographic evidence for any acute cardiopulmonary process.
[2024-12-22] MEDS: LACTATED RINGERS 1000ML 1,000 ML IV SCH (18:53)
[2024-12-22 20:18] VITALS: BP 159/62; PULSE 69; RESP 16; TEMP 97.9; O2SAT 99
== END 2024-12-22 20:20 | disposition home or self-care (01) ==
LOC: EDH 16:56
DX: E86.0 Dehydration (principal); E11.65 Type 2 diabetes mellitus with hyperglycemia; E78.00 Pure hypercholesterolemia, unspecified; I10 Essential (primary) hypertension; Z79.01 Long term (current) use of anticoagulants
CPT/HCPCS: 99284; 96360; 71045; 82550; 83735; 84484; 80048; 83880; 85025; 85610; 85730; 36415; 93005; J7120